=== PATIENT | male | born 1980 | race Caucasian/White ===

== ENCOUNTER 2021-12-27 15:54 | Emergency (ER) | payer OTHER, SELFPAY ==
[2021-12-27 16:17] VITALS: BP 161/111; PULSE 75; RESP 16; TEMP 36.3; O2SAT 98
[2021-12-27 16:30] VITALS: RESP 16
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
[2021-12-27] MEDS: Dexamethasone 10 MG/ML VIAL PO (16:43)
[2021-12-27] MEDS: Albuterol HFA 8 GM 60 PUFF INH IH (16:44)
[2021-12-27] MEDS: Inhaler, Assist Device 1 EACH MC (16:45)
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
[2021-12-27 18:04] VITALS: BP 152/110; PULSE 81; RESP 0; TEMP 35.8; O2SAT 96
[2021-12-27 18:07] VITALS: BP 152/110; PULSE 81; RESP 16; TEMP 35.8; O2SAT 96
== END 2021-12-27 18:18 | disposition home or self-care (01) ==
PROVIDERS: Emergency Provider Registered Nurse Emergency; PCP Family Medicine
DX: T59.4X1A Toxic effect of chlorine gas, accidental (unintentional), initial encounter (principal); R07.89 Other chest pain; J34.89 Other specified disorders of nose and nasal sinuses; S27.399A Other injuries of lung, unspecified, initial encounter; Y99.0 Civilian activity done for income or pay
CPT/HCPCS: 99283; 71046; J1100

== ENCOUNTER 2025-05-05 09:04 | Outpatient (CLI) | payer BC, SELFPAY ==
[2025-05-05 07:48] LABS: HCT 45.1 % (40.0-50.0); HGB 15.5 g/dL (13.5-17.5); MCH 30.0 pg (27.0-33.0); MCHC 34.4 % (32.0-36.0); MCV 87 fL (80-95); MPV 10.1 fL (8.0-11.0); Platelet Count 251 10^3/uL (130-400); RBC 5.17 10^6/uL (4.36-5.78); RDW 12.8 % (11.8-14.1); RDW-SD 40.8 fL; WBC 5.04 10^3/uL (4.4-10.8)
[2025-05-05 08:05] LABS: Hemoglobin A1C 5.4 % (<5.7)
[2025-05-05 08:27] LABS: ALT 34 U/L (16-63); AST 23 U/L (15-37); Albumin 4.2 g/dL (3.4-5.0); Alkaline Phosphatase 103 U/L (46-116); Anion Gap 8.1 mmol/L (3-11); BUN 20 mg/dL (7-18); Bilirubin, Total 0.6 mg/dL (0.2-1.0); CO2 27.9 mmol/L (21.0-32.0); Calcium 9.5 mg/dL (8.5-10.1); Calculated LDL 193 mg/dL (<100); Chloride 103 mmol/L (98-107); Cholesterol 263 mg/dL (<200); Estimated GFR 76.48 (mL/min/1.73m2); Glucose 110 mg/dL (74-106); HDL Cholesterol 47 mg/dL (>or=40); Potassium 4.3 mmol/L (3.5-5.1); Sodium 139 mmol/L (136-145); TSH 1.48 uIU/mL (0.36-3.74); Total Protein 7.4 g/dL (6.4-8.2); Triglyceride 118 mg/dL (<150)
[2025-05-15 23:36] LABS: Testosterone, Free 108.6 pg/mL (35.0-155.0)
== END 2025-05-05 09:05 | disposition home or self-care (01) ==
LOC: LBO 09:04
PROVIDERS: PCP Family Medicine; Visit Provider Nurse Practitioner Family
DX: E78.5 Hyperlipidemia, unspecified (principal); I10 Essential (primary) hypertension; G47.9 Sleep disorder, unspecified; R73.03 Prediabetes
CPT/HCPCS: 36415; 80053; 80061; 82533; 83090; 84402; 84403; 85027; 83036; 84443